=== PATIENT | female | born 1965 | race Two or more races ===

== ENCOUNTER 2021-03-15 22:51 | Emergency (ER) | payer OTHER ==
[~2021-03-15] VITALS: Ht 160 cm; Wt 80.7 kg
[2021-03-16] MEDS ORDERED: DICY20TA PO (03:41)
[2021-03-16] MEDS ORDERED: INTESTINEX680 M2 PO (03:41)
[2021-03-16] MEDS ORDERED: PEPCID AC20 MG PO (03:41)
[2021-03-16] MEDS ORDERED: PROTONIX20 MG PO (03:41)
== END 2021-03-16 03:56 | disposition home or self-care (01) ==
LOC: ER 22:51
DX: R19.7 Diarrhea, unspecified (principal); R10.32 Left lower quadrant pain

== ENCOUNTER 2021-11-28 12:48 | Emergency (ER) | payer OTHER ==
[~2021-11-28] VITALS: Ht 160 cm; Wt 72.1 kg
[~2021-11-28 12:48] MED LIST: DICY20TA PO; INTESTINEX680 M2 PO; PEPCID AC20 MG PO; PROTONIX20 MG PO
== END 2021-11-28 16:35 | disposition home or self-care (01) ==
LOC: ER 12:48
DX: B34.8 Other viral infections of unspecified site (principal); Z20.828 Contact with and (suspected) exposure to other viral communicable diseases